=== PATIENT | male | born 1985 ===

== ENCOUNTER 2018-04-15 11:54 | Emergency (ER) | payer SELFPAY ==
[2018-04-15 11:59] VITALS: BP 97/78; PULSE 86; RESP 18; TEMP 98.1; O2SAT 100
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
== END 2018-04-15 13:28 ==
LOC: H.ER 11:54
DX: Z02.89 Encounter for other administrative examinations (principal); Z65.3 Problems related to other legal circumstances

== ENCOUNTER 2018-04-18 02:24 | Emergency (ER) | payer SELFPAY ==
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
[2018-04-18 06:26] VITALS: BP 134/73; PULSE 78; RESP 16; TEMP 98.2; O2SAT 98
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
== END 2018-04-18 06:37 | disposition home or self-care (01) ==
LOC: H.ER 02:24
DX: F43.20 Adjustment disorder, unspecified (principal); S09.90XA Unspecified injury of head, initial encounter; Y04.0XXA Assault by unarmed brawl or fight, initial encounter; Y92.89 Other specified places as the place of occurrence of the external cause

== ENCOUNTER 2018-04-21 02:17 | Emergency (ER) | payer SELFPAY ==
[2018-04-21 02:25] VITALS: BP 136/63; PULSE 97; RESP 18; TEMP 98.3; O2SAT 98
== END 2018-04-21 03:57 ==
LOC: H.ER 02:17
DX: Z00.8 Encounter for other general examination (principal); Z59.0 Homelessness